=== PATIENT | male | born 1995 | race Caucasian/White ===

== ENCOUNTER → 2020-11-20 | Outpatient (CLI) | payer OTHER | END | disposition home or self-care (01) | LOC: CARD 09:44 | PROVIDERS: ATTEND Nurse Practitioner | DX: F90.0 Attention-deficit hyperactivity disorder, predominantly inattentive type (principal); F90.9 Attention-deficit hyperactivity disorder, unspecified type ==

== ENCOUNTER 2021-05-09 14:03 | Emergency (ER) | payer OTHER ==
[~2021-05-09] VITALS: Ht 182.8 cm; Wt 90.7 kg
[2021-05-09] MEDS ORDERED: ADDERALL 10 MG10 MG PO (14:28)
[2021-05-09] MEDS ORDERED: ADDERALL 20 MG20 MG PO (14:28)
[2021-05-09] MEDS ORDERED: IBUPROFEN600 MG PO ×2 (17:17→17:18)
== END 2021-05-09 17:30 | disposition home or self-care (01) ==
LOC: ED 14:03
DX: M25.562 Pain in left knee (principal)